=== PATIENT | female | born 2000 | race Caucasian/White ===

== ENCOUNTER 2019-06-04 13:00 | Inpatient (IN) | payer OTHER ==
[~2019-06-04] VITALS: Ht 162.6 cm; Wt 92.1 kg
[~2019-06-04 13:00] MED LIST: ACETAMINOPHEN500 M2 PO
[2019-06-10] MEDS ORDERED: PRENATAL TABLE1 EAC1 PO (11:21)
== END 2019-06-12 16:00 | disposition home or self-care (01) | DRG 807 ==
LOC: O/R 13:00 → OB/GYN 06-10 08:18 → LDR 06-10 08:18 → OB/GYN 06-10 17:33 → O/R 06-11 13:00 → OB/GYN 06-12 16:00
PROVIDERS: ADMIT Obstetrics & Gynecology
PROC: 10E0XZZ Delivery of Products of Conception, External Approach (ICD-10-PCS; principal; 2019-06-10)
PROC: 0UQGXZZ Repair Vagina, External Approach (ICD-10-PCS; 2019-06-10)
PROC: 4A1HXCZ Monitoring of Products of Conception, Cardiac Rate, External Approach (ICD-10-PCS; 2019-06-10)
PROC: 4A033R1 Measurement of Arterial Saturation, Peripheral, Percutaneous Approach (ICD-10-PCS; 2019-06-10)
DX: O71.4 Obstetric high vaginal laceration alone (principal); Z37.0 Single live birth; Z3A.40 40 weeks gestation of pregnancy; Z22.330 Carrier of Group B streptococcus